=== PATIENT | female | born 1995 | race Caucasian/White ===

== ENCOUNTER 2016-10-05 19:52 | Emergency (ER) | payer BC ==
[2016-10-05 20:05] VITALS: BP 100/75; PULSE 74; RESP 18; TEMP 98; O2SAT 100
--- NOTE | 2016-10-05 20:32 | UCPHY ---
H & P Time Seen by Provider: 10/05/16 20:08 Patient Type: Established HPI/ROS: HPI Sinus congestion and pressure. 21-year-old female by private vehicle with her mother. Patient complains of ongoing sinus and nasal congestion and pressure for the last week to 10 days. She is studying for a big exam to get into [employer]. She is concerned that she is still symptomatic. Her exam is this . She called her primary care physician but was unable to be seen this evening. She was told to come to the urgent care to get a prescription for antibiotics to treat her sinusitis. She denies other complaints. ROS: Constitutional: As above, no chills. No weakness. Eyes: No discharge. No changes in vision. ENT: No sore throat. As above. Respiratory: No cough. No shortness of breath. Cardiac: No chest pain, no palpitations. Musculoskeletal: No back pain. No neck pain. No myalgias or arthralgias. Skin: No rashes. Neurological: Sinus pressure headache. No focal weakness or altered sensation. Past medical history: Frequent sinus infections. Social history: Here with her mother. Physical Exam: General Appearance: Alert, no distress. This patient is responding to questions appropriately and in full sentences. This patient appears well- hydrated and well-nourished. Eyes: Pupils equal and round no pallor or injection. No lid edema, erythema or injection. ENT, Mouth: Mucous membranes are moist. The pharyngeal tissues are unremarkable. No edema or swelling. No asymmetry suggestive of abscess. No erythema or exudates. No pain on palpation of her frontal sinuses or maxillary sinuses. No facial swelling or erythema. Respiratory: There are no retractions, lungs are clear to auscultation with good air movement bilaterally. Cardiovascular: Regular rate and rhythm. No murmur. Neurological: Motor sensory function is grossly intact. Cranial nerves are normal. Gait is normal. Skin: Warm and dry, no rashes. Musculoskeletal: Neck is supple and nontender. No significant cervical or submental lymphadenopathy. No pain on flexion of the neck. Extremities are symmetrical. All joints range without pain or impingement. Psychiatric: No agitation. No depression. Database: EKG: Imaging: Procedures: Emergency department course: After my evaluation, explained that her condition was likely viral. I recommended supportive care with NSAIDs and antihistamines. Her mother was very concerned that she get a prescription for antibiotics. After further discussion I agreed to write a prescription for Augmentin to treat for a possible bacterial etiology of sinusitis but with instructions to fill the prescription only if she spikes a fever or the symptoms are persisting more than 3 days from now. They were in agreement. Follow-up and return to emergency department precautions discussed. All their questions were answered. She was discharged in good condition. Differential Diagnosis: The differential diagnosis on this patient includes but is not limited to upper respiratory infection, viral sinusitis, viral rhinitis. Serious bacterial infection unlikely. This represents a partial list of diagnoses considered. These considerations are based on history, physical exam, past history and reassessment. Smoking Status: Never smoked Constitutional: Initial Vital Signs Temperature (C) 36.6 C 10/05/16 20:02 Heart Rate 74 10/05/16 20:02 Respiratory Rate 18 10/05/16 20:02 Blood Pressure 100/75 10/05/16 20:02 O2 Sat (%) 100 10/05/16 20:02 O2 Delivery Mode Room Air Allergies/Adverse Reactions: No Known Allergies Allergy (Unverified 12/10/10 14:09) Home Medications: Medication Instructions Recorded Amoxicillin/Clavulanate Pot 875 mg PO BID 7 Days 10/05/16 [Augmentin 875 mg tab] MDM/Departure - Depart Disposition: Home, Routine, Self-Care Clinical Impression: Upper respiratory infection, Sinusitis Condition: Good Instructions: Upper Respiratory Infection (ED), Sinusitis (ED) Additional Instructions: Read and follow provided instructions. Follow-up with your primary care physician in 2-3 days for re-evaluation as needed. As discussed, fill antibiotic prescription if symptoms are not resolving in 3 days or if you develop a fever. Drink lots of fluids and keep yourself well hydrated. Over the counter cough and cold medications such as NyQuil can help with the congestion and with sleeping. Return to the emergency department for worsening headache, fever, vomiting or other serious concerns. Best of luck on your MCAT, you will do fantastic. Prescriptions: Amoxicillin/Clavulanate Pot [Augmentin 875 mg tab] 875 mg PO BID 7 Days Referrals: [place],. [Primary Care Provider] - As per Instructions - PQRS PQRS Measurement: Not applicable.
== END 2016-10-05 20:40 | disposition home or self-care (01) ==
LOC: CED 19:52
DX: J06.9 Acute upper respiratory infection, unspecified (principal); J32.9 Chronic sinusitis, unspecified
CPT/HCPCS: 99214-PO; G0463-PO